=== PATIENT | male | born 1980 | race Caucasian/White ===

== ENCOUNTER 2016-10-29 09:24 | Emergency (ER) | payer BC ==
[~2016-10-29] VITALS: Ht 182.9 cm; Wt 104.0 kg
[2016-10-29 09:27] VITALS: Ht 182.9 cm; Wt 104.0 kg
[2016-10-29 10:09] LABS: BASOPHIL # 0.1 10^3/ul (0.0-0.1); BASOPHILS % 0.8 % (0.0-2.0); EOSINOPHILS # 0.3 10^3/ul (0.0-0.5); EOSINOPHILS % 3.5 % (0.0-7.0); HEMATOCRIT 45.6 % (42.0-52.0); HEMOGLOBIN 16.3 g/dl (14.0-18.0); LYMPHOCYTES % 40.3 % (15.0-51.0); MEAN CORPUSCULAR HEMOGLOBIN 31.7 pg (29.0-33.0); MEAN CORPUSCULAR HGB CONC 35.7 g/dl (32.0-37.0); MEAN CORPUSCULAR VOLUME 88.5 fl (82.0-101.0); MEAN PLATELET VOLUME 10.5 fl (7.4-10.4); MONOCYTE # 0.5 10^3/ul (0.3-0.9); MONOCYTES % 6.9 % (0.0-11.0); NEUTROPHILS % 48.2 % (39.0-77.0); PLATELET COUNT 377 10^3/UL (140-415); RED BLOOD COUNT 5.15 10^6/ul (4.70-6.10); RED CELL DISTRIBUTION WIDTH 11.9 % (11.5-14.5); WHITE BLOOD COUNT 7.4 10^3/ul (4.8-10.8)
--- NOTE | 2016-10-29 10:13 | RADRPT ---
PROCEDURE: XR Chest. CLINICAL INDICATION: Chest Pain. TECHNIQUE: Single frontal view of the chest was obtained. COMPARISON: None. FINDINGS: The heart and mediastinum are within normal limits. The lungs are clear. There is no significant pleural effusion or pneumothorax. IMPRESSION: No acute disease. RPTAT: EE Physician Maricruz Date Time Electronically viewed and signed by Wood Gonzalez Physician on 10/29/2016 10:13 RA/
[2016-10-29 10:26] LABS: ALANINE AMINOTRANSFERASE 76 IU/L (13-69); ALBUMIN 4.8 g/dl (3.3-4.9); ALBUMIN/GLOBULIN RATIO 1.17; ALKALINE PHOSPHATASE 81 IU/L (42-121); ANION GAP 22 (8-16); ASPARTATE AMINO TRANSFERASE 33 IU/L (15-46); BILIRUBIN,INDIRECT 0.5 mg/dl (0-1.1); BILIRUBIN,TOTAL 0.5 mg/dl (0.2-1.3); BLOOD UREA NITROGEN 17 mg/dl (7-20); CALCIUM 9.8 mg/dl (8.4-10.2); CARBON DIOXIDE 22 mmol/L (21-31); CHLORIDE 104 mmol/L (97-110); CREATININE 1.04 mg/dl (0.61-1.24); GLUCOSE 90 mg/dl (70-220); POTASSIUM 4.3 mmol/L (3.5-5.1); SODIUM 144 mmol/L (135-144); TOTAL PROTEIN 8.9 g/dl (6.1-8.1)
[2016-10-29 10:28] LABS: INR 1.04; PROTIME 13.6 Sec (12.2-14.2); PT RATIO 1.1
[2016-10-29 10:29] LABS: PARTIAL THROMBOPLASTIN TIME 32.9 Sec (25.0-35.0)
[2016-10-29 10:42] LABS: TROPONIN-I < 0.012 ng/ml (0.00-0.12)
[2016-10-29] MEDS ORDERED: NAPR-260 PO (10:46)
[2016-10-29 10:57] VITALS: RESP 18
[2016-10-29] MEDS ORDERED: IBUPROFEN 800 MG TAB PO ONE (11:00)
--- NOTE | 2016-10-29 13:32 | ERD ---
ER Documentation Chief Complaint Date/Time DATE: 10/29/16 TIME: 13:27 Chief Complaint pt bib family with c/o chest pain since 3 am with arm numbness HPI 35-year-old male coming in complaining of left-sided chest pain 7 hours. Patient describes chest pain as squeezing pain and has left arm numbness. Patient has pain that radiates from the front to the back. Pain is reproducible with palpation. He denies shortness of breath. He has a mild cough, denies hemoptysis. Describes the pain as 8 out of 10. Has not taken medications for pain. He does not know what exacerbating symptoms have caused the pain. Denies medical problems. NKDA. Surgical history: Nasoplasty. Social history denies. ROS All systems reviewed and are negative except as per history of present illness. Medications Home Meds Active Scripts Naproxen* (Naprosyn*) 500 Mg Tablet, 500 MG PO BID Y for PAIN AND/OR INFLAMMATION, #30 TAB Prov:TANA VENEGAS PA-C 10/29/16 Allergies Allergies: Coded Allergies: No Known Allergy (Unverified , 07/22/13) PMhx/Soc Medical and Surgical Hx: pt denies Medical Hx, pt denies Surgical Hx Hx Alcohol Use: Yes Hx Substance Use: No Hx Tobacco Use: No Physical Exam Vitals Vital Signs Date Time Temp Pulse Resp B/P Pulse Ox O2 Delivery O2 Flow Rate FiO2 10/29/16 10:57 18 96 Room Air 10/29/16 09:27 98.3 88 16 138/85 90 Physical Exam GENERAL: The patient is well-appearing, well-nourished, in no acute distress CHEST: Clear to auscultation bilaterally. There are no rales, wheezes or rhonchi. HEART: Regular rate and rhythm. No murmurs, clicks, rubs or gallops. No S3 or S4. ABDOMEN:Soft, nontender and nondistended. Good bowel sounds. No rebound or guarding. No gross peritonitis. No gross organomegaly or masses. No Wright sign or McBurney point tenderness. BACK: No midline or flank tenderness. EXTREMITIES: Equal pulses bilaterally. There is no peripheral clubbing, cyanosis or edema. No focal swelling or erythema. Full range of motion. Grossly neurovascularly intact. Result Diagram: 10/29/1695410/29/16954 Results 24 hrs Laboratory Tests Test 10/29/16 09:55 White Blood Count 7.410^3/ul Red Blood Count 5.1510^6/ul Hemoglobin 16.3g/dl Hematocrit 45.6% Mean Corpuscular Volume 88.5fl Mean Corpuscular Hemoglobin 31.7pg Mean Corpuscular Hemoglobin Concent 35.7g/dl Red Cell Distribution Width 11.9% Platelet Count 98586^3/UL Mean Platelet Volume 10.5fl Neutrophils % 48.2% Lymphocytes % 40.3% Monocytes % 6.9% Eosinophils % 3.5% Basophils % 0.8% Nucleated Red Blood Cells % 0.0/100WBC Neutrophils # (Manual) 3.610^3/ul Lymphocytes # 3.010^3/ul Monocytes # 0.510^3/ul Eosinophils # 0.310^3/ul Basophils # 0.110^3/ul Nucleated Red Blood Cells # 0.010^3/ul Prothrombin Time 13.6Sec Prothrombin Time Ratio 1.1 INR International Normalized Ratio 1.04 Activated Partial Thromboplast Time 32.9Sec Sodium Level 144mmol/L Potassium Level 4.3mmol/L Chloride Level 104mmol/L Carbon Dioxide Level 22mmol/L Anion Gap 22 Blood Urea Nitrogen 17mg/dl Creatinine 1.04mg/dl Glucose Level 90mg/dl Calcium Level 9.8mg/dl Total Bilirubin 0.5mg/dl Direct Bilirubin 0.00mg/dl Indirect Bilirubin 0.5mg/dl Aspartate Amino Transf (AST/SGOT) 33IU/L Alanine Aminotransferase (ALT/SGPT) 76IU/L Alkaline Phosphatase 81IU/L Troponin I < 0.012ng/ml Total Protein 8.9g/dl Albumin 4.8g/dl Globulin 4.10g/dl Albumin/Globulin Ratio 1.17 Current Medications Medications (Trade) Dose Ordered Sig/Lamberto Route PRN Reason Start Time Stop Time Status Last Admin Dose Admin Ibuprofen (Motrin) 800 mg ONCE ONCE PO 10/29/16 11:00 10/29/16 11:01 DC 10/29/16 11:09 Procedures/MDM DIAGNOSTIC IMAGING REPORT Patient: VISHNU RAM : 1980 Age: 35 Sex: M MR #: [id number] DOS: 10/29/16 0953 Ordering MD: ELIANE VENEGAS PA-C Location: [facility] Room/Bed: PROCEDURE: XR Chest. CLINICAL INDICATION: Chest Pain. TECHNIQUE: Single frontal view of the chest was obtained. COMPARISON: None. FINDINGS: The heart and mediastinum are within normal limits. The lungs are clear. There is no significant pleural effusion or pneumothorax. IMPRESSION: No acute disease. EKG: Normal sinus rhythm. 98 bpm. Normal axis. No ST elevations. No arrhythmias. Reviewed and signed off by Dr. Robles ER Course: Patient given ibuprofen in ED MDM: 35-year-old male coming in complaining of left-sided chest pain. I have low suspicion for cardiac emergency including but not limited to myocardial infarction, endocarditis, myocarditis, aortic aneurysm, or AAA. I have low suspicion for pulmonary emergency including but not limited to pneumothorax, pulmonary embolism, pulmonary contusion. Patient's EKG is within normal limits. Patient's blood work is within normal limits. Patient's pain is reproducible on palpation. Patient has normal pulses noted to bilateral upper and lower extremities with no discrepancy appreciated. Patient given ibuprofen in the ER. I recommend patient follow-up with primary care physician within 1 to days for a close evaluation. I recommend his symptoms change or worsen to immediately return back to the ER. Patient understood and complied with plan. All her questions answered at time of discharge. Departure Diagnosis: Primary Impression: Chest pain Condition: Stable Patient Instructions: Chest Pain, Uncertain Cause Referrals: [facility] YOU HAVE RECEIVED A MEDICAL SCREENING EXAM AND THE RESULTS INDICATE THAT YOU DO NOT HAVE A CONDITION THAT REQUIRES URGENT TREATMENT IN THE EMERGENCY DEPARTMENT. FURTHER EVALUATION AND TREATMENT OF YOUR CONDITION CAN WAIT UNTIL YOU ARE SEEN IN YOUR DOCTORS OFFICE WITHIN THE NEXT 1-2 DAYS. IT IS YOUR RESPONSIBILITY TO MAKE AN APPOINTMENT FOR FOLOW-UP CARE. IF YOU HAVE A PRIMARY DOCTOR --you should call your primary doctor and schedule an appointment IF YOU DO NOT HAVE A PRIMARY DOCTOR YOU CAN CALL OUR PHYSICIAN REFERRAL HOTLINE AT IF YOU CAN NOT AFFORD TO SEE A PHYSICIAN YOU CAN CHOSE FROM THE FOLLOWING [facility] [address] [facility]. [facility] [address] [facility] [address] [facility]. [facility] [address] [facility]. [facility] [address] [facility]. [facility] [address] Additional Instructions: FOLLOW UP WITH YOUR PRIMARY CARE PHYSICIAN TOMORROW.Return to this facility if you are not improving as expected. TANA VENEGAS PA-C Oct 29, 2016 13:32
== END 2016-10-29 11:14 | disposition home or self-care (01) ==
LOC: FTE 09:24
DX: R07.9 Chest pain, unspecified (principal)
CPT/HCPCS: 36415; 71010; 80053; 84484; 85025; 85610; 85730; 93005; Z7502; Z7610

== ENCOUNTER 2017-09-10 14:41 | Emergency (ER) | END 2017-09-10 18:09 | disposition home or self-care (01) ==

== ENCOUNTER 2017-09-13 14:38 | Emergency (ER) | END 2017-09-13 17:15 | disposition home or self-care (01) ==